=== PATIENT | male | born 1950 | race Caucasian/White ===

== ENCOUNTER 2023-11-27 17:42 | Emergency (ER) | payer MEDICARE ==
[~2023-11-27] VITALS: Ht 162.6 cm; Wt 77.1 kg
[2023-11-27] MEDS ORDERED: OCTYL 2-CYANOACRYLATE 1 EACH TP ONE (18:13)
[2023-11-27] MEDS ORDERED: TETANUS/DIPHTHERIA TOXOID [ADULT] 0.5 ML VIAL IM ONE (18:30)
[2023-11-27] MEDS ORDERED: ACETAMINOPHEN 500 MG TABLET PO ONE (18:30)
[2023-11-27] MEDS ORDERED: CEPHALEXIN 500 MG CAPSULE PO ONE (18:30)
[2023-11-27] MEDS ORDERED: CEPH500B PO (18:31)
[2023-11-27 18:50] VITALS: BP 154/83; PULSE 85; RESP 16; O2SAT 97
== END 2023-11-27 18:51 | disposition home or self-care (01) ==
LOC: EDH 17:42
DX: S01.81XA Laceration without foreign body of other part of head, initial encounter (principal); E11.9 Type 2 diabetes mellitus without complications; E78.00 Pure hypercholesterolemia, unspecified; I10 Essential (primary) hypertension; W07.XXXA Fall from chair, initial encounter; Y93.89 Activity, other specified; Y92.89 Other specified places as the place of occurrence of the external cause; Y99.8 Other external cause status
CPT/HCPCS: 12013; 90471; 90714; 93005